=== PATIENT | female | born 1975 | race Two or more races ===

== ENCOUNTER 2020-03-11 11:11 | Emergency (ER) | payer OTHER ==
[~2020-03-11] VITALS: Ht 162.6 cm; Wt 97.5 kg
--- NOTE | 2020-03-11 11:20 | NUR ---
c/o epigastric pain sice yesterday 08/02 ps, no diarrhea, +N/V. Patient a/ox4, breathing even and unlabored, no sob noted. Patient unable to provide urine at this time. kept comfortable.
[2020-03-11] MEDS ORDERED: LIDOCAINE VISCOUS 2% UD 15 ML UDC ONE (11:45)
[2020-03-11] MEDS ORDERED: FAMOTIDINE/PF INJ 20 MG/2 ML VIAL IV ONE (11:45)
[2020-03-11] MEDS ORDERED: MAG HYDROX/AL HYDROX/SIMETH 30 ML UDC ONE (11:45)
[2020-03-11] MEDS ORDERED: ONDANSETRON HCL/PF 4 MG/2 ML VIAL ONE (11:45)
[2020-03-11 11:55] LABS: BASOPHILS # (AUTO) 0.1 /CMM (0.0-0.2); BASOPHILS % (AUTO) 0.5 % (0.0-2.0); EOSINOPHILS % (AUTO) 0.1 % (0.0-6.0); HEMATOCRIT 39 % (33-45); HEMOGLOBIN 13.2 g/dL (11.5-14.8); LYMPHOCYTES # (AUTO) 1.3 /CMM (0.8-4.8); MEAN CORPUSCULAR HGB CONC 34 g/dl (31.0-36.0); MEAN CORPUSCULAR VOLUME 82 fL (82-100); MONOCYTES % (AUTO) 7.4 % (2.0-12.0); PLATELET COUNT (AUTO) 240 /CMM (150-450); WHITE BLOOD COUNT (AUTO) 13.4 K/uL (4.3-11.0)
[2020-03-11] MEDS ORDERED: PANTOPRAZOLE 40 MG VIAL ONE (11:55)
[2020-03-11] MEDS ORDERED: IV NS 0.9% 1,000 ML BAG IV ONE (12:00)
[2020-03-11] MEDS ORDERED: MAG HYDROX/AL HYDROX/SIMETH 30 ML UDC PO ONE (12:00)
[2020-03-11] MEDS ORDERED: ONDANSETRON HCL/PF 4 MG/2 ML VIAL IVP ONE (12:00)
[2020-03-11] MEDS ORDERED: PANTOPRAZOLE 40 MG VIAL IV ONE (12:00)
[2020-03-11] MEDS ORDERED: LIDOCAINE VISCOUS 2% UD 15 ML UDC MM ONE (12:00)
[2020-03-11 12:07] LABS: CALCIUM, SERUM 9.1 mg/dL (8.5-10.1); CREATININE 0.8 mg/dL (0.6-1.3); POTASSIUM 3.8 mmol/L (3.5-5.1)
[2020-03-11 12:13] LABS: ALBUMIN 3.6 g/dL (3.4-5.0); BILIRUBIN,DIRECT 0.1 mg/dL (0.0-0.2); BILIRUBIN,TOTAL 0.4 mg/dL (0.2-1.0); TOTAL PROTEIN, SERUM 7.7 g/dL (6.4-8.2)
[2020-03-11 12:34] LABS: APPEARANCE,URINE Clear (CLEAR); BILIRUBIN,URINE SMALL (NEGATIVE); BLOOD, URINE Large Ery/uL (NEGATIVE); COLOR,URINE Yellow (YELLOW); KETONES,URINE Trace (NEGATIVE); LEUKOCYTE ESTERASE ,URINE Negative (NEGATIVE); NITRITE, URINE Negative (NEGATIVE); PROTEIN,URINE 30 mg/dl (NEGATIVE); UGLUCOSE Negative (NEGATIVE); UROBILINOGEN,URINE 0.2 EU/dL (0.2)
[2020-03-11 12:41] LABS: BACTERIA,URINE Few /HPF (None Seen); SQUAMOUS EPITHELIAL CELL,UR Few /HPF (None Seen); WBC,URINE 0-2 /HPF (0-3)
--- NOTE | 2020-03-11 13:03 | NUR ---
Patient stated she feels better, vitals improved. No distress noted. IV removed. Catheter intact and site benign. Pressure and 4x4 applied to site. No bleeding noted.Patient discharged to home in stable condition. Written and verbal after care instructions given. Patient verbalizes understanding of instruction.
[2020-03-11 13:04] VITALS: BP 139/81
== END 2020-03-11 13:04 | disposition home or self-care (01) ==
LOC: ER 11:16
DX: R10.13 Epigastric pain (principal); J45.909 Unspecified asthma, uncomplicated
CPT/HCPCS: 36415; 80048; 80076; 81001; 83690; 84703; 85025; 96374; 96375; 99284; C9113; J2405; J7030; 81000-TC; J3490

== ENCOUNTER 2020-04-15 20:05 | Emergency (ER) | payer OTHER ==
[~2020-04-15] VITALS: Ht 165.1 cm; Wt 97.5 kg
--- NOTE | 2020-04-15 20:21 | NUR ---
PT CAME TO THE ED C/O MIDEPIGASTRIC ABDOMINAL PAIN X 2 DAYS. +NAUSEA. PT AAOX4, RESPIRATIONS EVEN AND UNLABORED ON RA W/ NAD NOTED. PT AMBULATORY W/ STEADY GAIT. DENIES HEMATURIA. PT CONNECTED TO THE MONITOR AND POX
--- NOTE | 2020-04-15 20:22 | NUR ---
URINE COLLECTED AND SENT TO LAB
--- NOTE | 2020-04-15 20:22 | NUR ---
[employer] DEGRASSE AT BEDSIDE
[2020-04-15] MEDS ORDERED: HYDROMORPHONE INJ 2 MG/ML DISP.SYRIN IV ONE (20:30)
[2020-04-15] MEDS ORDERED: ONDANSETRON HCL/PF 4 MG/2 ML VIAL ONE (20:30)
[2020-04-15] MEDS ORDERED: HYDROMORPHONE 1 MG/1 ML DISP.SYRIN ONE (20:30)
[2020-04-15] MEDS ORDERED: ONDANSETRON HCL/PF 4 MG/2 ML VIAL IVP ONE (20:30)
[2020-04-15] MEDS ORDERED: IV NS 0.9% 1,000 ML BAG IV ONE (20:30)
--- NOTE | 2020-04-15 20:36 | NUR ---
BLOOD COLLECTED AND SENT TO LAB
[2020-04-15 20:38] LABS: BASOPHILS % (AUTO) 0.3 % (0.0-2.0); EOSINOPHILS % (AUTO) 2.1 % (0.0-6.0); HEMATOCRIT 38 % (33-45); HEMOGLOBIN 12.9 g/dL (11.5-14.8); LYMPHOCYTES # (AUTO) 1.8 /CMM (0.8-4.8); LYMPHOCYTES % (AUTO) 20.2 % (20.0-44.0); MEAN CORPUSCULAR HGB CONC 34 g/dl (31.0-36.0); MEAN CORPUSCULAR VOLUME 83 fL (82-100); MONOCYTES # (AUTO) 0.7 /CMM (0.1-1.30); MONOCYTES % (AUTO) 8.4 % (2.0-12.0); NEUTROPHILS # (AUTO) 6.1 /CMM (1.8-8.9); PLATELET COUNT (AUTO) 228 /CMM (150-450); RED BLOOD CELL COUNT(AUTO) 4.63 MIL/uL (4.0-5.2); WHITE BLOOD COUNT (AUTO) 8.9 K/uL (4.3-11.0)
--- NOTE | 2020-04-15 21:00 | NUR ---
ULTRASOUND IN PROGRESS AT BEDSIDE
[2020-04-15 21:12] LABS: APPEARANCE,URINE Clear (CLEAR); BILIRUBIN,URINE Negative (NEGATIVE); BLOOD, URINE Moderate Ery/uL (NEGATIVE); COLOR,URINE Yellow (YELLOW); KETONES,URINE Negative (NEGATIVE); LEUKOCYTE ESTERASE ,URINE Trace (NEGATIVE); NITRITE, URINE Negative (NEGATIVE); PROTEIN,URINE Negative (NEGATIVE); UGLUCOSE Negative (NEGATIVE); UROBILINOGEN,URINE 0.2 EU/dL (0.2)
[2020-04-15 21:14] LABS: CALCIUM, SERUM 9.1 mg/dL (8.5-10.1); POTASSIUM 3.7 mmol/L (3.5-5.1)
[2020-04-15 21:25] LABS: ALBUMIN 3.7 g/dL (3.4-5.0); BILIRUBIN,DIRECT 0.1 mg/dL (0.0-0.2); BILIRUBIN,TOTAL 0.2 mg/dL (0.2-1.0); TOTAL PROTEIN, SERUM 7.7 g/dL (6.4-8.2)
[2020-04-15 21:29] LABS: BACTERIA,URINE Few /HPF (None Seen); MUCUS,URINE Few /LPF (None Seen); SQUAMOUS EPITHELIAL CELL,UR Few /HPF (None Seen); WBC,URINE 0-2 /HPF (0-3)
--- NOTE | 2020-04-15 21:45 | NUR ---
Patient discharged to home in stable condition. Written and verbal after care instructions given. Patient verbalizes understanding of instruction.IV removed. Catheter intact and site benign. Pressure and 4x4 applied to site. No bleeding noted.Patient discharged to home in stable condition.Pt ambulatory w/ steady gait.
[2020-04-15 21:46] VITALS: BP 107/84
== END 2020-04-15 21:47 | disposition home or self-care (01) ==
LOC: ER 20:08
DX: K80.50 Calculus of bile duct without cholangitis or cholecystitis without obstruction (principal); R11.0 Nausea; R31.9 Hematuria, unspecified; J45.909 Unspecified asthma, uncomplicated
CPT/HCPCS: 36415; 76705; 80048; 80076; 81001; 83690; 84703; 85025; 96374; 96375; 99284; J1170; J2405; J7030; 81000-TC